=== PATIENT | female | born 1990 | race African-American/Black ===

== ENCOUNTER 2023-05-03 08:09 | Emergency (ER) | payer SELFPAY ==
[2023-05-03] MEDS ORDERED: AMOXicillin 500 MG CAP PO SCH (09:00)
[2023-05-03] MEDS ORDERED: HYDROcodone/Acetaminophen 5/325 mg Tablet ONE (09:08)
[2023-05-03] MEDS ORDERED: AMOXicillin 250 MG CAP PO SCH (09:15)
== END 2023-05-03 09:15 | disposition home or self-care (01) ==
LOC: CSHERS 08:09
DX: K02.9 Dental caries, unspecified (principal)
CPT/HCPCS: 93005